=== PATIENT | female | born 1965 | race Caucasian/White ===

== ENCOUNTER → 2024-06-30 13:24 | Outpatient (REF) | payer OTHER, SELFPAY | LOC: WDC 13:24 | PROVIDERS: ATTENDING PHYSICIAN Obstetrics & Gynecology; FAMILY PHYSICIAN Family Medicine | DX: Z12.31 Encounter for screening mammogram for malignant neoplasm of breast (principal) | CPT/HCPCS: 77063; 77067 ==

== ENCOUNTER 2024-07-09 06:24 | Day surgery (SDC) | payer OTHER, SELFPAY ==
[2024-06-25 11:47] LABS: Blood Urea Nitrogen 16 mg/dl (7-17); Carbon Dioxide 28 mmol/L (22-30); Chloride 97 mmol/L (98-107); Glucose 89 mg/dl (70-99); Potassium 4.4 mmol/L (3.5-5.1); Sodium 136 mmol/L (135-145); eGFR > 60.00
[2024-06-25 13:06] VITALS: BMI 27.3
[2024-07-09] VITALS (12 sets, daily range): BP systolic 114–140; BP diastolic 60–97; BMI 27.3
== END 2024-07-09 12:38 | disposition home or self-care (01) ==
LOC: SDS 06:24
PROVIDERS: ATTENDING PHYSICIAN Obstetrics & Gynecology; FAMILY PHYSICIAN Family Medicine
DX: N93.8 Other specified abnormal uterine and vaginal bleeding (principal); Z79.890 Hormone replacement therapy
CPT/HCPCS: 58558; 88305; 36415; 80048; 93005

== ENCOUNTER → 2024-08-09 16:04 | Outpatient (REF) | payer OTHER, SELFPAY ==
[2024-08-09 16:35] LABS: % Basophils 0.2 % (0-2); % Eosinophils 1.9 % (0-6); % Immature Granulocytes 0.5 % (0-0.5); % Lymphocytes 11.3 % (20.5-51.1); % Monocytes 9.4 % (1.7-9.3); % Neutrophils 76.7 % (42.2-75.2); Absolute Eosinophils 0.3 10^3/uL (0-0.7); Absolute Immature Granulocytes 0.1 10^3/uL (0-0.05); Absolute Lymphocytes 1.8 10^3/uL (1.2-3.4); Absolute Monocytes 1.5 10^3/uL (0.1-0.6); Absolute Neutrophils 12.5 10^3/uL (1.4-6.5); Hematocrit 33.5 % (37.0-47.0); Hemoglobin 11.6 g/dL (12.0-16.0); Mean Corp Hgb Conc. 34.6 g/dL (33.0-37.0); Mean Corpuscular Hgb 32.9 pg (27.0-31.0); Mean Corpuscular Volume 94.9 fL (81.0-99.0); Mean Platelet Volume 9.5 fL (7.4-10.4); Nucleated Red Blood Cells % 0 %; Platelet Count 305 10^3/uL (130-400); Red Blood Cell Count 3.53 10^6/uL (4.20-5.40); Red Cell Dist. Width 11.9 % (11.5-14.5); White Blood Cell Count 16.2 10^3/uL (4.8-10.8)
[2024-08-09 16:58] LABS: ALT (SGPT) 44 U/L (0-35); AST (SGOT) 47 U/L (14-36); Albumin 4.1 g/dl (3.5-5.0); Alkaline Phosphatase 139 U/L (38-126); Blood Urea Nitrogen 8 mg/dl (7-17); Calcium 8.9 mg/dl (8.4-10.2); Carbon Dioxide 26 mmol/L (22-30); Chloride 96 mmol/L (98-107); Glucose 115 mg/dl (70-99); Potassium 3.9 mmol/L (3.5-5.1); Sodium 132 mmol/L (135-145); Total Bilirubin 1.3 mg/dl (0.2-1.3); eGFR > 60.00
[2024-08-09 16:59] LABS: Amylase 210 U/L (30-110); Lipase 950 U/L (23-300)
== END ==
LOC: REG 16:04
PROVIDERS: ATTENDING PHYSICIAN Physician Assistant; FAMILY PHYSICIAN Family Medicine
DX: R10.13 Epigastric pain (principal); R11.2 Nausea with vomiting, unspecified
CPT/HCPCS: 36415; 74019; 80053; 82150; 83690; 85025

== ENCOUNTER 2024-08-10 03:16 | Inpatient (IN) | payer OTHER, SELFPAY ==
[2024-08-09 20:28] VITALS: BP 135/78
[2024-08-09 23:52] VITALS: BP 131/63
[2024-08-10] VITALS (9 sets, daily range): BP systolic 110–139; BP diastolic 63–76; BMI 25.7; BMI 28.3
[2024-08-10] MEDS: NSS 1000 IV (00:04)
[2024-08-10] MEDS: DILAUDID 0.5 MG IV ×2 (00:04→03:14)
--- NOTE | 2024-08-10 00:27 | ED.GENMED ---
History of Present Illness
General
Chief Complaint: Abdominal Pain
Source: patient
Time Seen by Provider: 08/09/24 23:22
History of Present Illness
History of Present Illness:
58-year-old female with past medical history of hypertension, GERD status post previous cholecystectomy presenting to the emergency department for evaluation and anticipated admission at the request of primary care provider after she started
experiencing abdominal pain, nausea, vomiting and diminished p.o. intake over the weekend while on a weekend trip with girlfriends, had blood work and an abdominal x-ray done earlier today with lab work showing acute pancreatitis. Patient stating
pain is can of periumbilical and radiating towards her back, waxing and waning in intensity but currently an 8 or 9 out of 10. She does note intermittent nausea but denies this presently. No other symptoms. Patient does note that she had been
drinking a couple of alcoholic beverages but nothing out of the ordinary. She also notes she is on Wegovy. Notes she had previous cholecystectomy done at this facility.
Past History
Past History
ED Past Medical History: GERD and HTN
ED Past Surgical History: Appendectomy, Cholecystectomy and Other
Social History
Tobacco: Non-smoker
Alcohol: Occasional
Drug: None
Personal:
Living: with family
Review of Systems
Review of Systems
All Other Systems: ROS reviewed and negative except as documented in HPI and ROS
Phy Exam
Physical Exam
Physical Exam:
GENERAL: Alert , in no apparent distress but does appear uncomfortable
EYE: clear conjunctiva b/l
HEAD: NCAT
ENT: o/p clr, mmm.
CARDIAC: Regular rate and rhythm .
LUNGS: Clear breath sounds bilaterally, no acute respiratory distress, no wheezes/rales/rhonchi
ABDOMEN: Soft, periumbilical pain on palpation, no r/g, no cvat
NEUROLOGICAL: Alert and oriented
SKIN: Warm and dry, skin intact.
MUSCULOSKELETAL: No edema, well perfused.
PSYCH: Normal and appropriate interaction.
Scores
Heart Failure Risk
Heart Failure Risk Score: Not Applicable
Heart Score for Chest Pain Patients
STEMI patient?: Not applicable
Withdrawal Assessment of Alcohol
Withdrawal Assessment Completed?: Not applicable
Course
Orders/Labs/Results
Orders:
Orders
08/09/24 23:41
0.9% Sodium Chloride 1000 ml [Nss] 1,000 ml IV BOLUS
HYDROmorphone [Dilaudid] 0.5 mg IV NOW STA
08/10/24
CT Abd/pelvis W Iv Cont Urgent
Reason For Exam: pancretitis, elevated LFT, gallstone panc
Vital Signs
Initial and Last Documented VS:
Initial Vital Signs
Temp Pulse Resp BP Pulse Ox
98.6 F 83 16 135/78 99
08/09/24 20:28 08/09/24 20:28 08/09/24 20:28 08/09/24 20:28 08/09/24 20:28
Last Documented Vital Signs
Temp Pulse Resp BP Pulse Ox
98.6 F 83 16 110/63 91
08/09/24 20:28 08/09/24 20:28 08/09/24 20:28 08/10/24 01:00 08/10/24 01:00
MDM/Problems Addressed
Differential Diagnosis Includes:
Acute pancreatitis secondary to alcohol, Wegovy versus choledocholithiasis
MDM/Problems Addressed:
58-year-old female presenting to the ER for evaluation at the request of primary care provider for acute pancreatitis. Patient has a few risk factors for pancreatitis include recent alcohol use, Wegovy and given her LFT elevation on lab work
possibility for choledocholithiasis. Will obtain CT scan for further evaluation. Dilaudid ordered for pain control. IV fluids ordered. Anticipated admission.
*Radiology
Radiology exam reviewed: radiology read reviewed
*Pulse Oximetry
Patient hypoxic: no
*Critical Care Note
Total Time (30-74mins, 75-104mins- exclusive of procedures): Not Applicable
Data Reviewed
Review of Other/Old Records Reveals: Radiology Studies
Patient Management
Discussion with other providers: Hospitalist and Livestock Broker
Escalation/DeEscalation of care consider admission/obs:
Patient CT scan shows acute pancreatitis and a bowel obstruction. Without any further vomiting here, pain is currently controlled and she states that she still has had intermittent flatulence. Hospitalist team was notified and accepts for
continued evaluation and treatment. General surgery was also notified via [employer] text and will consult on the patient. Will hold on NG tube at this time given patient's improved symptoms combined with no active vomitus.
ED Attending Note
-
Portions of this chart may have been created with voice recognition software.� Occasional wrong word or��sound alike� substitutions may have occurred due to the inherent limitations of voice recognition software.
Discharge Plan
Departure
Patient Disposition: Admit
Date of Disposition: 08/10/24
Time of Disposition: 01:55
Presentation/result/management discussed w/ accepting MD/DO: Hospitalist
Discharge Problem:
Acute pancreatitis, Small bowel obstruction
Prescriptions:
No Action
estradiol 1 MG tablet
1 mg PO HS
progesterone micronized 100 MG capsule
100 mg PO HS
escitalopram oxalate 5 MG tablet
5 mg PO HS
ibuprofen 200 MG tablet
400 - 600 mg PO Q6HPRN PRN (Reason: moderate pain) Qty: 1 0RF
vitamin B complex Tablet
1 tab PO DAILY
olmesartan 5 mg Tablet
5 mg PO HS
Wegovy 2.4 mg/0.75 mL Pen Injector
2.4 mg SC SA
Nutraful
4 tab PO DAILY
loratadine 10 mg Tablet
10 mg PO DAILY
Referrals:
Jones Escobar MD [Family Provider] -
Interventions
Interventions:
*General Assessment Last Done: 08/09/24 20:28
*Neglect/Abuse Screening Last Done: 08/09/24 20:28
*ED COVID-19 Vaccine History Last Done: 08/09/24 20:28
AR-Gqerrk-Ndwfhyoogh Assessment Last Done: 08/10/24 00:20
Discharge Date and Time
Print Language: LITHUANIAN
--- NOTE | 2024-08-10 02:24 | HPS.HSE ---
Family Physician
-
Family Physician: Jones Escobar
Chief Complaint
-
abdominal pain and constipation.
History of Present Illness
This is a 58 y.o female with history of hyperlipidiemia, hypertension, GERD presenting to the emergency department with abdominal pain since last week friday and constipation.
Patient reported she traveled with friends for the weekend get away last . Prior to traveling she send breath with a son with some alcohol that is bit more than usual for her. During the weekend she did continue to have alcohol including
several adolescent med read. She reports that at home she drinks about 1 to 2 glasses of wine a night anyway. Around she started having epigastric abdominal pain and some constipation. It continued all the way she will Friday. She
reported that she took some laxatives and was able to have a bowel movement on Friday. She then traveled back to [place]. Since then she is continue to have epigastric abdominal pain that radiates to the back. She vomited after taking
laxatives but has not vomited again since then. She reports that she is burping. She denies any fevers or chills. She denies any melena or hematochezia.
Patient recently had a D&C in June but otherwise no recent procedures. She is status post appendectomy and cholecystectomy. History of cholelithiasis status postcholecystectomy. She is also had abdominal plastic surgery. Patient has been on
Wegovy for a few months now.
In the emergency department she was afebrile, hemodynamically stable, blood pressure was 110/60 with a pulse of 78. CBC notable for a white count of 16.2 but otherwise unremarkable. Lipase was elevated at 950, she had essentially normal AST and
ALT of 40 but slight elevation in alk phos of 130. Sodium was 132 with the rest of the electrolytes are normal. BUN/creatinine were normal. Glucose was normal. She had a CT of the abdomen pelvis showing peripancreatic stranding compatible with
acute pancreatitis, no evidence of pseudocyst. She did have bowel obstruction and is not on oral contrast CT and EGD showed that she is status post colostomy and appendectomy.
Medical History
Past Medical History
Past Medical History: Reports GERD, HTN and Hypercholesterolemia
Past Surgical History: Reports Appendectomy, Cholecystectomy and Other (Abdominal tummy tuck)
Social History
Tobacco: Non-smoker
Alcohol: Daily
Drug: None
Personal:
Living: With Family
Employment: Employed
Family History
Family History: Not pertinent
Allergies / Home Medications
Allergies reflects when Allergies were last updated in [facility].
Home Medications with original date entered in [facility]
Allergy/Medication List:
Allergies
Allergy/AdvReac Type Severity Reaction Status Date / Time
No Known Allergies Allergy Verified 07/09/24 08:06
Home Medications
escitalopram oxalate 5 mg tablet 5 mg PO HS Depression 12/12/20
estradiol 1 mg tablet 1 mg PO HS Hormonal agent 12/12/20
progesterone micronized 100 mg capsule 100 mg PO HS Hormonal agent 12/12/20
ibuprofen 200 mg tablet 400 - 600 mg (2 - 3 x 200 mg) PO Q6HPRN PRN moderate pain #1 tab 02/15/21
Nutraful 4 tab PO DAILY 07/02/24
loratadine 10 mg tablet 10 mg PO DAILY 07/02/24
olmesartan 5 mg tablet 5 mg PO HS 07/02/24
semaglutide (weight loss) 2.4 mg/0.75 mL subcutaneous pen injector (Wegovy) 2.4 mg SC SA 07/02/24
vitamin B complex 1 tab PO DAILY 07/02/24
Review of Systems
-
History Source: Patient
Constitutional: Reports No Symptoms
EENT: Reports No Symptoms
Respiratory: Reports No Symptoms
Cardiac: Reports No Symptoms
Abdomen/GI: Reports Abdominal Pain, Nausea and Constipated
: Reports No Symptoms
Musculoskeletal: Reports No Symptoms
Skin: Reports No Symptoms
Neurological: Reports No Symptoms
Endocrine: Reports No Symptoms
Hematologic/Lymphatic: Reports No Symptoms
Psych: Reports No Symptoms
Physical Exam
Vital Signs
Vital Signs
Temp Pulse Resp BP Pulse Ox
98.6 F 83 16 110/63 91
08/09/24 20:28 08/09/24 20:28 08/09/24 20:28 08/10/24 01:00 08/10/24 01:00
Physical Exam
General: Well Developed, Well Nourished and Comfortable
HEENT: NormoCephalic, Anicteric, Moist mucous membranes and Atraumatic
Respiratory: Clear
Cardiac: Regular Rhythm
Breast: Deferred by me
GI: Soft, Non Tender, Non Distended and Normal Bowel Sounds
Genito-urinary: Deferred by me
Musculoskeletal: No Clubbing, No Cyanosis and No Edema
Skin: Warm
Neuro: AO x 3
Hematologic/Lymphatic: No Lymphadenopathy
Psych: Calm
Laboratory Results
-
See chief complain for relevant labs
Data Reviewed
-
CT Scan: Report Reviewed by me
Lab Data: Labs Reviewed by me
Old Records: Reviewed
Impression/Plan
-
IMPRESSION:
58 y.o with acute pancreatitis. Likely etoh induced given recent etoh use that is higher than usual but not excessive. She drank wine and margaritas with friends throughout the end of last week then had abdominal pain. Lipase 950. No biliary
ductal dilation and LFTs not particularly cholestatic. No other ingestions. Medications generally benign and normal calcium. Wegovy could be another etiology. Finding of SBO reported on CT scan but abdominal exam is benign. Normal bowel sounds,
non-distended. She is not vomiting and has minimal nausea at this time.
PLAN:
Pancreatitis - Suspect etoh pancreatis, possible semaglutide related. Unlikely stones
- admit to med/surg
- npo for now
- pain control and iv fluids
- check triglycerides
- encouraged abstinence from ETOH
- can continue semaglutide as outpatient after follow up with pmd
SBO - Unclear etiology of SBO, has prior surgeries so likely adhesions. No stones at the moment to suggest stone ileus. No evidence of bowel ischemia. Passing flatus. Benign exam and non-toxic appearing.
- NPO for now
- serial examinations
- if persistent abd pain or worsening distention consider NG tube
- requested surgical consult
- evaluation with CT with oral contrast to eval for complete obstruction in am
HTN
- continue olmesartan
DVT PPX - lovenox sq
Code status - Full Code
[2024-08-10] MEDS: FLUSH (NSS) 1 FLUSH IV (03:24)
[2024-08-10] MEDS: LR 1000 IV ×3 (05:51→21:19)
--- NOTE | 2024-08-10 05:53 | TRANSFER ---
Pt arrived from the ED. Ambulatory ad nannette. Pt was informed of NPO status. Pt verbalized understanding. Orientation to the room complete. Belonings and call karlee franz in reach. IVF running. Pt instructed to call prior to getting OOB for assistance
with IV pole.
[2024-08-10 08:16] LABS: Hematocrit 29.5 % (37.0-47.0); Hemoglobin 10.3 g/dL (12.0-16.0); Mean Corp Hgb Conc. 34.9 g/dL (33.0-37.0); Mean Corpuscular Hgb 33.1 pg (27.0-31.0); Mean Corpuscular Volume 94.9 fL (81.0-99.0); Mean Platelet Volume 9.8 fL (7.4-10.4); Platelet Count 262 10^3/uL (130-400); Red Blood Cell Count 3.11 10^6/uL (4.20-5.40); Red Cell Dist. Width 11.9 % (11.5-14.5); White Blood Cell Count 12.3 10^3/uL (4.8-10.8)
--- NOTE | 2024-08-10 08:39 | CON.GS ---
Medical History
-
Chief Complaint: Abdominal pain
History of Present Illness:
Patient is a 58 yo F with a PMH of GERD, HTN, fatty liver disease, s/p open appendectomy, s/p abdominoplasty, and s/p laparoscopic cholecystectomy by Dr. Singh in 02/2021. Ms. Diego presents with several days of epigastric abdominal pain. She
states that her symptoms began 4-5 days ago after having Malagasy food and margaritas. Her symptoms persisted throughout the weekend, however, she was on a 'girls trip' and power through her symptoms with delayed presentation and workup by her PCP
yesterday. She reports drinking some alcoholic beverages over the course of the weekend while on her girls trip, but nothing out of the ordinary. She reports epigastric discomfort radiating to her back. Associated fullness and mild nausea with 1
episode of self-induced vomiting. She initially attributed her issues to GERD and constipation. She did use a stool softener to good effect with some looser, nonbloody stools. She denies any jaundice, pale stools, or tea colored urine. No fevers
or chills. No urinary symptoms. She denies any prior similar attacks over the past few years. She is currently on Wegovy and has been on this for over a year. No family history of pancreatitis. No documented issues with high triglycerides.
Workup in the ED with an abdominal x-ray was initially concerning for a SBO. Labs notable for a leukocytosis to 16, mild anemia, hyponatremia, hypokalemia, mild elevations in LFTs and ALP, elevated amylase and lipase. Further workup was obtained
with a IV (no PO) contrast CT scan which demonstrated inflammatory changes of the entire pancreas without evidence of necrosis or peripancreatic fluid collection. No evidence of biliary ductal dilation.
Past Medical History
Past Medical History: GERD, HTN and Other (Fatty liver disease)
Past Surgical History: Appendectomy, Cholecystectomy and Other (Abdominoplasty)
Social History
Tobacco: Non-Smoker
Alcohol: Occasional
Drug: None
Personal:
Living: With Family
Family History
Family History: Reviewed & Noncontributory
Allergies / Home Medications
Allergy/AdvReac Type Severity Reaction Status Date / Time
No Known Allergies Allergy Verified 07/09/24 08:06
�Medication �Instructions �Recorded �Confirmed �Type
escitalopram oxalate 5 mg tablet 5 mg PO HS Depression 12/12/20 08/10/24 History
estradiol 1 mg tablet 1 mg PO HS Hormonal agent 12/12/20 08/10/24 History
progesterone micronized 100 mg 100 mg PO HS Hormonal agent 12/12/20 08/10/24 History
capsule
ibuprofen 200 mg tablet 400 - 600 mg (2 - 3 x 200 mg) PO 02/15/21 08/10/24 Rx
Q6HPRN PRN moderate pain #1 tab
Nutraful 4 tab PO DAILY 07/02/24 08/10/24 History
olmesartan 5 mg tablet 5 mg PO HS 07/02/24 08/10/24 History
semaglutide (weight loss) 2.4 2.4 mg SC SA 07/02/24 08/10/24 History
mg/0.75 mL subcutaneous pen
injector (Wegovy)
vitamin B complex 1 tab PO DAILY 07/02/24 08/10/24 History
Review of Systems
-
A 10 point review of systems was completed, and was negative except as per HPI.
Physical Exam
Vital Signs
Temp Pulse Resp BP Pulse Ox
98.7 F 88 17 138/64 98
08/10/24 07:40 08/10/24 07:40 08/10/24 07:40 08/10/24 07:40 08/10/24 07:40
08/09/24 08/10/24 08/11/24
06:59 06:59 06:59
Actual Weight 70.08 kg
Body Mass Index (BMI) 28.3
Lab Results
08/10/24 07:51
WBC 12.3 10^3/uL (4.8-10.8) H 08/10/24 07:51
Hgb 10.3 g/dL (12.0-16.0) L 08/10/24 07:51
Hct 29.5 % (37.0-47.0) L 08/10/24 07:51
Plt Count 262 10^3/uL (130-400) 08/10/24 07:51
Physical Exam
General: Well Developed, Well Nourished and No Apparent Distress
HEENT: Normocephalic and Anicteric
Respiratory: Non Labored Respirations
Cardiac: Regular Rhythm
GI: Soft, Non Distended, Tender (Mild epigastric), Incisions (Well-healed) and Other (Nonperitoneal)
Skin: Warm and Dry
Neuro: Nonfocal/Grossly Intact
Data Reviewed
-
Radiology: Image Personally Visualized and interpreted and Report Reviewed by me
CT Scan: Image Personally Visualized and interpreted and Report Reviewed by me
Labs: Labs Reviewed by me
Old Records: Reviewed
Assessment / Plan
-
Patient is a 58 yo F p/w pancreatitis, most likely related to alcohol, less likely gallstones given prior cholecystectomy
The natural history and pathophysiology of pancreatitis was reviewed. Mild elevation in lipase best explained by labs showing improvement given that her symptoms peaked days ago. Current episode most likely related to alcohol intake given her
clinical history. Less likely related to gallstones given her prior cholecystectomy. Her LFT and ALP elevation does raise some possible concern, however, during her previous cholecystectomy operative findings notable for fatty liver disease.
Possible component of hepatitis with EtOH intake. Much less likely that some debris within her cystic or CBD duct remained postcholecystectomy, gievn that she is years out from her prior surgery without any reported intervening episodes or attacks.
Recommend GI consultation multiple for further workup and management. Okay for diet as tolerated. Pain control and IV fluid resuscitation. Her x-ray findings were initially concerning for a possible SBO, prompting General Surgery consultation.
This is most likely reactive secondary to pancreatitis. CT scan findings did not demonstrate eminent evidence of a SBO (though study limited by lack of oral contrast). All questions answered.
-- No role for surgical intervention or further work-up
-- GI consultation
-- Diet as tolerated
-- IVF resuscitation and pain meds as needed
-- Please call with any questions or concerns
[2024-08-10 08:58] LABS: ALT (SGPT) 50 U/L (0-35); AST (SGOT) 47 U/L (14-36); Albumin 3.2 g/dl (3.5-5.0); Alkaline Phosphatase 137 U/L (38-126); Blood Urea Nitrogen 4 mg/dl (7-17); Calcium 8.3 mg/dl (8.4-10.2); Carbon Dioxide 25 mmol/L (22-30); Chloride 103 mmol/L (98-107); Direct Bilirubin 0.4 mg/dl (0.0-0.4); Estimated Creatinine Clearance 91 ml/min; Glucose 91 mg/dl (70-99); Potassium 3.6 mmol/L (3.5-5.1); Sodium 136 mmol/L (135-145); Total Bilirubin 0.9 mg/dl (0.2-1.3); Total Protein 5.8 g/dl (6.3-8.2); Triglycerides 97 mg/dl (10-149); eGFR > 60.00
[2024-08-10] MEDS: TORADOL 10 MG IV ×2 (12:16→21:25)
--- NOTE | 2024-08-10 12:43 | W.PN.HOSP.TC ---
Today's Communication/Plan
-
see A/P
Assessment / Plan
Assessment / Plan
HPI: 58 yo female with history of hyperlipidemia, hypertension, GERD; p/w abdominal pain since the week prior and constipation.
Patient reported she traveled with friends for the weekend get away. She has been drinking more when away.
She started having epigastric abdominal pain and some constipation.
She then traveled back to [place]. Since then she is continue to have epigastric abdominal pain that radiates to the back.
Patient recently had a D&C in June but otherwise no recent procedures. She is status post appendectomy and cholecystectomy. History of cholelithiasis status post cholecystectomy. She is also had abdominal plastic surgery. Patient has been on
Wegovy for a few months now.
Lipase was elevated at 950, with essentially normal AST and ALT but slight elevation in alk phos of 130.
She had a CT of the abdomen pelvis showing peripancreatic stranding compatible with acute pancreatitis, no evidence of pseudocyst.
A/P:
# Pancreatitis - Suspect etoh pancreatis, possible semaglutide related. Unlikely stones
advance to clears
pain control with IV Toradol and Dilaudid PRN
IV Protonix during hospital stay
Cont IVF with RL, decrease to 100 c/hr
triglyceride WNL at 97
encouraged abstinence from ETOH
can continue semaglutide as outpatient after follow up with pmd
# possibility low-grade partial small bowel obstruction, resolved
Appreciate GS input, can ADAT
Can check repeat Abd XR tmr
# HTN
continue olmesartan
DVT PPX - Lovenox sq
Code status - Full Code
DW at bedside
DW RN
Anticipated Discharge: 24 - 48 hours
Subjective/Interval History
-
Date of Service: August 10, 2024
Objective Data
-
Labs:
Laboratory Results
08/10/24
07:51
WBC 12.3 H
Hgb 10.3 L
Hct 29.5 L
Plt Count 262
Sodium 136
Potassium 3.6
Chloride 103
Carbon Dioxide 25
BUN 4 L
Creatinine 0.5 L
Glucose 91
Calcium 8.3 L
Total Bilirubin 0.9
AST 47 H
ALT 50 H
Alkaline Phosphatase 137 H
Vital Signs:
Vital Signs
Temp Pulse Resp BP Pulse Ox
37.1 C 88 17 138/64 98
08/10/24 07:40 08/10/24 07:40 08/10/24 07:40 08/10/24 07:40 08/10/24 07:40
Review of Systems
-
Abdomen/GI: Reports Abdominal Pain (improving )
Physical Exam
-
General: Well Developed, Well Nourished, No Apparent Distress, Comfortable and Conversant; Negative Respiratory Distress
HEENT: Normocephalic, Atraumatic, Nose Appears Normal and Ears Appear Normal; Negative Oxygen
Respiratory: Clear to Auscultation and Non Labored Respirations; Negative Accessory Resp Muscle Use
Cardiac: Regular Rhythm and S1/S2
GI: Soft, Nontender, Nondistended and Normal Bowel Sounds
Skin: Warm and Dry
Neuro: Awake, Alert, Oriented and AO x 3
Psych: Calm and Intact Judgement/Insight
Data Reviewed
-
Diagnostic Radiology: Report Reviewed by me
CT Scan: Report Reviewed by me
Labs: Labs Reviewed by me
--- NOTE | 2024-08-10 14:06 | CM ---
CM reviewed medical records. CM met with patient in room. Patient confirmed demographics. Patient lives independently. Patient does not have a history of VN< SNF or DME. Patient is active with her PCP. Patient has medication coverage.
PLAN: home no needs.
--- NOTE | 2024-08-10 15:35 | PTCARENOTE ---
Patient tolerating clear liquid diet, no c/o pain at present. Patient ambulating in the halls with spouse.
[2024-08-10] MEDS: PROTONIX IV 40 MG IV (17:14)
[2024-08-10] MEDS: LOVENOX 40 MG SC (17:15)
[2024-08-10] MEDS: NSS (PRESERVATIVE FREE) 10 ML IV (17:15)
[2024-08-10] MEDS: BENICAR 5 MG PO (21:20)
[2024-08-10] MEDS: LEXAPRO 5 MG PO (21:21)
[2024-08-10] MEDS: ZYRTEC 10 MG PO (21:22)
[2024-08-10] MEDS: ESTRACE 1 MG PO (21:22)
[2024-08-10] MEDS: NON-FORMULARY ITEM 1 MG PO (21:23)
[2024-08-11 07:00] VITALS: BP 145/73
[2024-08-11] MEDS: LR 1000 IV (07:38)
[2024-08-11] MEDS: PROTONIX IV 40 MG IV (07:39)
[2024-08-11] MEDS: NSS (PRESERVATIVE FREE) 10 ML IV (07:39)
[2024-08-11 08:15] LABS: Hematocrit 27.2 % (37.0-47.0); Hemoglobin 9.4 g/dL (12.0-16.0); Mean Corp Hgb Conc. 34.6 g/dL (33.0-37.0); Mean Corpuscular Hgb 32.5 pg (27.0-31.0); Mean Corpuscular Volume 94.1 fL (81.0-99.0); Platelet Count 256 10^3/uL (130-400); Red Blood Cell Count 2.89 10^6/uL (4.20-5.40); Red Cell Dist. Width 11.9 % (11.5-14.5); White Blood Cell Count 8.2 10^3/uL (4.8-10.8)
[2024-08-11 09:15] LABS: ALT (SGPT) 57 U/L (0-35); AST (SGOT) 56 U/L (14-36); Albumin 2.8 g/dl (3.5-5.0); Alkaline Phosphatase 157 U/L (38-126); Blood Urea Nitrogen 5 mg/dl (7-17); Calcium 8.4 mg/dl (8.4-10.2); Carbon Dioxide 25 mmol/L (22-30); Chloride 105 mmol/L (98-107); Estimated Creatinine Clearance 91 ml/min; Glucose 90 mg/dl (70-99); Lipase 421 U/L (23-300); Magnesium 1.9 mg/dl (1.6-2.3); Potassium 3.6 mmol/L (3.5-5.1); Sodium 136 mmol/L (135-145); Total Bilirubin 0.6 mg/dl (0.2-1.3); Total Protein 5.3 g/dl (6.3-8.2); eGFR > 60.00
[2024-08-11] MEDS: TORADOL 10 MG IV (10:36)
--- NOTE | 2024-08-11 10:38 | CM ---
Addendum entered by Leisa Rangel RN 08/11/24 11:47:
spoke with pt she said she will be discharged today if tolerates lunch.
Her Mariano will drive her home .
Home no needs
PLAN Home no needs
Original Note:
Advanced to clear liquids yesterday.
Toradol IV for pain prn.
Lives with spouse.
PLAN Home no anticipated needs
--- NOTE | 2024-08-11 11:24 | W.PN.HOSP.TC ---
Addendum entered and electronically signed by Tia Kulkarni MD 08/11/24 14:48:
total DC time 36 min
Original Note:
Today's Communication/Plan
-
see A/P
Assessment / Plan
Assessment / Plan
HPI: 58 yo female with history of hyperlipidemia, hypertension, GERD; p/w abdominal pain since the week prior and constipation.
Patient reported she traveled with friends for the weekend get away. She has been drinking more when away.
She started having epigastric abdominal pain and some constipation.
She then traveled back to [place]. Since then she is continue to have epigastric abdominal pain that radiates to the back.
Patient recently had a D&C in June but otherwise no recent procedures. She is status post appendectomy and cholecystectomy. History of cholelithiasis status post cholecystectomy. She is also had abdominal plastic surgery. Patient has been on
Wegovy for a few months now.
Lipase was elevated at 950, with essentially normal AST and ALT but slight elevation in alk phos of 130.
She had a CT of the abdomen pelvis showing peripancreatic stranding compatible with acute pancreatitis, no evidence of pseudocyst.
A/P:
# Pancreatitis - Suspect etoh pancreatis, possible semaglutide related. Unlikely stones
triglyceride WNL at 97
clears advanced to low fat, OK for DC if tolerates low fat diet
pain control with IV Toradol and Dilaudid PRN
IV Protonix during hospital stay
DC further IVF RL
encouraged abstinence from ETOH
can continue semaglutide as outpatient after follow up with pmd
# possibility low-grade partial small bowel obstruction, resolved
Appreciate GS input, ADAT
Abd XR unrevealing
# Mild transaminitis likely related to pancreatitis
Follow LFT outpt with PCP
# HTN
continue olmesartan
DVT PPX - Lovenox sq
Code status - Full Code
DW at bedside
DW RN
Anticipated Discharge: Today
Subjective/Interval History
-
Date of Service: August 11, 2024
Objective Data
-
Labs:
Laboratory Results
08/11/24
07:54
WBC 8.2
Hgb 9.4 L
Hct 27.2 L
Plt Count 256
Sodium 136
Potassium 3.6
Chloride 105
Carbon Dioxide 25
BUN 5 L
Creatinine 0.4 L
Glucose 90
Calcium 8.4
Total Bilirubin 0.6
AST 56 H
ALT 57 H
Alkaline Phosphatase 157 H
Vital Signs:
Vital Signs
Temp Pulse Resp BP Pulse Ox
36.6 C 87 18 145/73 96
08/11/24 07:00 08/11/24 07:00 08/11/24 07:00 08/11/24 07:00 08/11/24 07:00
I&O
08/10/24 08/11/24 08/12/24
06:59 06:59 06:59
Intake Total 3590 / 3590
Balance 3590 / 3590
Review of Systems
-
Abdomen/GI: Denies Abdominal Pain
Physical Exam
-
General: Well Developed, Well Nourished, No Apparent Distress, Comfortable and Conversant; Negative Respiratory Distress
HEENT: Normocephalic, Atraumatic, Nose Appears Normal and Ears Appear Normal; Negative Oxygen
Respiratory: Clear to Auscultation and Non Labored Respirations; Negative Accessory Resp Muscle Use
Cardiac: Regular Rhythm and S1/S2
GI: Soft, Nontender, Nondistended and Normal Bowel Sounds
Skin: Warm and Dry
Neuro: Awake, Alert, Oriented and AO x 3
Psych: Calm and Intact Judgement/Insight
Data Reviewed
-
Diagnostic Radiology: Report Reviewed by me
CT Scan: Report Reviewed by me
Labs: Labs Reviewed by me
[2024-08-11] MEDS: KCL 40 MEQ PO (11:44)
--- NOTE | 2024-08-11 11:57 | W.DCSUMMARY ---
Discharge Summary
Discharge Data
Date of Admission: 08/10/24
Date of Discharge: 08/11/24
-
Pending Results: No
Hospital Course
Principal Diagnosis:
Acute pancreatitis, suspect secondary to alcohol and possible semaglutide related. Unlikely stones
Possibility low-grade partial small bowel obstruction, resolved
Mild transaminitis likely related to pancreatitis
Chronic Diagnoses:�
Essential hypertension
Hyperlipidemia
Gastroesophageal reflux disease
Consultations:�
General Surgery
Procedures:�
None
Clinical course:�
This is a 58-year-old female, with past medical history as stated above, who presented with abdominal pain.
Her abdominal pain started when she was on a weekend getaway with friends.
Of note, she has been on Wegovy for a few months and has lost weight.
Problem 1:
Acute pancreatitis, suspect secondary to alcohol and possible semaglutide related.
Unlikely related to gall stones given CT AP did not reveal stones.
Her triglyceride level was WNL at 97.
She tolerated low-fat diet prior to discharge which she can continue going forward.
Problem 2:
Possible low-grade partial small bowel obstruction, resolved.
Her follow up Abd XR was unrevealing.
Problem 3:
Mild transaminitis likely related to pancreatitis.
She can follow up repeat LFT outpt with her PCP.
As for the rest of her medical problems, they were stable during her hospital stay.
Discharge Plan
-
Patient Disposition: Home (Routine Discharge)
Discharge Diagnosis/Procedures: Acute pancreatitis (suspect related to alcohol, and possibly semaglutide, unlikely stones);
Mild transaminitis likely related to pancreatitis
Condition: Good
Diet: As tolerated, Low Fat and Low Cholesterol
Activity: As tolerated
Driving Restrictions: As prior to admission
Blood Work: LFT and lipase level in 1 week, results to PCP
Referrals:
Jones Escobar MD [Family Provider] - in less than 1 week
Prescriptions:
Continued
estradiol 1 MG tablet
1 mg PO HS
progesterone micronized 100 MG capsule
100 mg PO HS
escitalopram oxalate 5 MG tablet
5 mg PO HS
ibuprofen 200 MG tablet
400 - 600 mg PO Q6HPRN PRN (Reason: moderate pain) Qty: 1 0RF
vitamin B complex Tablet
1 tab PO DAILY
olmesartan 5 mg Tablet
5 mg PO HS
Wegovy 2.4 mg/0.75 mL Pen Injector
2.4 mg SC SA
Nutraful
4 tab PO DAILY
cetirizine 10 mg Tablet
10 mg PO HS
Discharge Orders:
Discharge Patient (As Directed); Ordered 08/11/24
Ordered By: Tia Kulkarni
Discharge Date and Time
Print Language: BELARUSIAN
[2024-08-11 14:00] VITALS: BP 141/72
== END 2024-08-11 14:48 | disposition home or self-care (01) | DRG 439 ==
LOC: 1 ACUTE 03:16
PROVIDERS: ADMITTING PHYSICIAN Internal Medicine; ATTENDING PHYSICIAN Internal Medicine; CONSULT PHYSICIAN Surgery; EMERGENCY PHYSICIAN Emergency Medicine; FAMILY PHYSICIAN Family Medicine
DX: K85.20 Alcohol induced acute pancreatitis without necrosis or infection (principal); E87.1 Hypo-osmolality and hyponatremia; K56.600 Partial intestinal obstruction, unspecified as to cause; K85.30 Drug induced acute pancreatitis without necrosis or infection; Z79.85 Long-term (current) use of injectable non-insulin antidiabetic drugs; T50.995A Adverse effect of other drugs, medicaments and biological substances, initial encounter; I10 Essential (primary) hypertension; K21.9 Gastro-esophageal reflux disease without esophagitis; E78.00 Pure hypercholesterolemia, unspecified; Z90.49 Acquired absence of other specified parts of digestive tract; K76.0 Fatty (change of) liver, not elsewhere classified; D64.9 Anemia, unspecified; E87.6 Hypokalemia; F32.A Depression, unspecified
CPT/HCPCS: 74018; 74177; 80048; 80053; 80076; 83690; 83735; 84478; 85027; 96361; 96374; 99285; Q9967

== ENCOUNTER 2024-10-28 06:21 | Day surgery (SDC) | payer OTHER, SELFPAY | END 2024-10-28 13:54 | disposition home or self-care (01) | LOC: GI 06:21 | PROVIDERS: ATTENDING PHYSICIAN Internal Medicine Gastroenterology | DX: Z12.11 Encounter for screening for malignant neoplasm of colon (principal); K64.8 Other hemorrhoids; D12.2 Benign neoplasm of ascending colon; K57.30 Diverticulosis of large intestine without perforation or abscess without bleeding; Z86.0100 Personal history of colon polyps, unspecified | CPT/HCPCS: 45380; 88305 ==

== ENCOUNTER → 2024-12-17 10:58 | Outpatient (REF) | payer BC, SELFPAY | LOC: PAVMRI 10:58 | PROVIDERS: ATTENDING PHYSICIAN Internal Medicine Gastroenterology; FAMILY PHYSICIAN Family Medicine | DX: Z87.19 Personal history of other diseases of the digestive system (principal) | CPT/HCPCS: 74183; A9575 ==